=== PATIENT | male | born 1960 | race Caucasian/White ===

== ENCOUNTER 2017-04-24 09:23 | Inpatient (IN) | payer OTHER ==
[~2017-04-24] VITALS: Ht 180.3 cm; Wt 89.0 kg
[2017-04-24] VITALS (23 sets, daily range): BP systolic 107–153; BP diastolic 58–100; PULSE 56–83; RESP 10–22; Ht 180.3 cm; Wt 89.0 kg
[2017-04-24] MEDS ORDERED: CARV3.1260 PO (09:58)
[2017-04-24] MEDS ORDERED: LISI10TA2 PO (09:58)
[2017-04-24] MEDS ORDERED: ASPI-664 PO (09:59)
[2017-04-24] MEDS ORDERED: AMLO5TAB4 PO (09:59)
--- NOTE | 2017-04-24 10:44 | RADRPT ---
PROCEDURE: XR Chest. CLINICAL INDICATION: Preoperative. TECHNIQUE: Single frontal view. COMPARISON: None. FINDINGS: The lungs are clear. The heart size is normal. There is no pleural effusion or pneumothorax. There is an old healed fracture of the mid right clavicle. IMPRESSION: 1. Old healed fracture of the midshaft of the right clavicle. 2. Otherwise normal chest x-ray. RPTAT: QQ .Titi Gonzalez MD, MD Date Time Electronically viewed and signed by .Titi Gonzalez MD, on 04/24/2017 10:43 .R/
[2017-04-24] MEDS ORDERED: TRANEXAMIC ACID 1,000 MG in SOD CHLORIDE 0.9% 100 ML IV ONE ×4 (12:30)
[2017-04-24] MEDS ORDERED: CEFAZOLIN 1 GM INJ ONE (13:22)
[2017-04-24] MEDS ORDERED: LIDOCAINE 2% (SDV) 5 ML INJ ONE (13:22)
[2017-04-24] MEDS ORDERED: PROPOFOL 20 ML ONE (13:22)
[2017-04-24] MEDS ORDERED: morphine SULFATE/PF (10 MG/10 ML) INJ ONE ×2 (13:22→14:25)
[2017-04-24] MEDS ORDERED: EPHEDrine SULFATE 50 MG/5 ML SYG IV PRN (13:30)
[2017-04-24] MEDS ORDERED: OXYCODONE/ACETAMINOPHEN (5/325) TAB PO PRN ×2 (13:30)
[2017-04-24] MEDS ORDERED: FENTAnyl 50 MCG/ML VIAL IV PRN ×3 (13:30)
[2017-04-24] MEDS ORDERED: hydrALAzine 20 MG INJ IV PRN (13:30)
[2017-04-24] MEDS ORDERED: DIPHENHYDRAMINE 50 MG INJ IV PRN (13:30)
[2017-04-24] MEDS ORDERED: ONDANSETRON 4 MG INJ IV PRN (13:30)
[2017-04-24] MEDS ORDERED: HYDROmorphONE (0.2 MG/ML) 10ML SYG IV PRN ×3 (13:30)
[2017-04-24] MEDS ORDERED: MIDAZOLAM 1 MG/ML 2 ML INJ IV PRN (13:30)
[2017-04-24] MEDS ORDERED: METOCLOPRAMIDE 10 MG INJ IV PRN (13:30)
[2017-04-24] MEDS ORDERED: MEPERIDINE 25 MG INJ IV PRN (13:30)
[2017-04-24] MEDS ORDERED: LABETALOL HCL 20MG INJ IV PRN (13:30)
--- NOTE | 2017-04-24 13:30 | HPN ---
Date/Time of Note Date/Time of Note DATE: 04/24/17 TIME: 13:29 Interval H&P Admission Note Pt. seen H&P reviewed: No system changes IRENA HUGHES PA-C Apr 24, 2017 13:30
[2017-04-24] MEDS ORDERED: ROPIVACAINE 0.5 % 30 ML VIAL ONE (14:01)
[2017-04-24] MEDS ORDERED: EPHEDrine SULFATE 50 MG/5 ML SYG ONE (14:01)
[2017-04-24] MEDS ORDERED: BACITRACIN 50000 UNITS INJ IRR ONE (14:11)
[2017-04-24] MEDS ORDERED: BUPIVACAINE 0.25% (MPF) 30 ML INJ ONE (14:25)
[2017-04-24] MEDS ORDERED: KETOROLAC 30 MG INJ ONE (14:26)
[2017-04-24] MEDS ORDERED: NALOXONE (0.4 MG/ML) INJ IV PRN (15:00)
[2017-04-24] MEDS ORDERED: VANCOMYCIN 1 GM INJ ONE (15:36)
[2017-04-24] MEDS ORDERED: morphine SULFATE/PF (10 MG/10 ML) INJ INJ ONE (15:38)
[2017-04-24] MEDS ORDERED: KETOROLAC 30 MG INJ INJ ONE (15:38)
[2017-04-24] MEDS ORDERED: BUPIVACAINE 0.25% (MPF) 30 ML INJ INJ ONE (15:38)
[2017-04-24] MEDS ORDERED: VANCOMYCIN 500MG INJ IMPLANTED ONE (15:40)
--- NOTE | 2017-04-24 16:19 | SIPON ---
Date/Time of Note Date/Time of Note DATE: 04/24/17 TIME: 16:17 Operative Report Preoperative Diagnosis Left Knee Osteoarthritis Postoperative Diagnosis Same Operation/Procedure Performed Left Total Knee Arthroplasty Surgeon MD Soumya technology assistant KIM Riley Anesthesia: general Estimated blood loss: 250 - 300 ml's Transfusion Required none Specimen Resected Bone Grafts/Implants Shah Nephew Size 6N femur, Size 4 Tibia, 35mm patella, 10mm PS poly Complications none JAY TAMEZ MD Apr 24, 2017 16:19
[2017-04-24] MEDS ORDERED: traMADol 50 MG TAB PO PRN (16:30)
[2017-04-24] MEDS ORDERED: KETOROLAC 15 MG INJ IV PRN (16:30)
[2017-04-24] MEDS: CEFAZOLIN 1 GM/50 ML (PMX) 50 ML IVPB SCH (17:44)
--- NOTE | 2017-04-24 17:44 | RADRPT ---
PROCEDURE: XR Left Knee. CLINICAL INDICATION: Left knee pain. Postop. TECHNIQUE: Two views. Frontal and lateral. COMPARISON: No prior studies are available for comparison. FINDINGS: There is no fracture or dislocation. Gas is present in the soft tissues from the recent surgery. There is a total left knee arthroplasty which appears satisfactory. There is no lytic or blastic lesion. IMPRESSION: 1. Satisfactory postoperative appearance of the left knee. RPTAT: QQ .Titi Gonzalez MD, MD Date Time Electronically viewed and signed by .Titi Gonzalez MD, MD on 04/24/2017 17:43 .R/
[2017-04-24] MEDS: ONDANSETRON 4 MG INJ IV SCH ×2 (19:13→22:30)
[2017-04-24] MEDS: LISINOPRIL 10 MG TAB PO SCH (20:00)
[2017-04-24] MEDS ORDERED: ASPIRIN (EC) 81 MG TAB PO SCH (20:00)
[2017-04-24] MEDS: AMLODIPINE 5 MG TAB PO SCH (20:00)
[2017-04-25] MEDS: CEFAZOLIN 1 GM/50 ML (PMX) 50 ML IVPB SCH ×2 (00:47→08:19)
[2017-04-25] MEDS: ONDANSETRON 4 MG INJ IV SCH ×2 (04:12→10:49)
[2017-04-25 05:12] LABS: BASOPHILS % 0.3 % (0.0-2.0); EOSINOPHILS # 0.2 10^3/ul (0.0-0.5); EOSINOPHILS % 2.3 % (0.0-7.0); HEMATOCRIT 38.1 % (42.0-52.0); LYMPHOCYTES # 1.7 10^3/ul (0.8-2.9); LYMPHOCYTES % 22.3 % (15.0-51.0); MEAN CORPUSCULAR HEMOGLOBIN 31.5 pg (29.0-33.0); MEAN CORPUSCULAR HGB CONC 34.1 g/dl (32.0-37.0); MEAN CORPUSCULAR VOLUME 92.3 fl (82.0-101.0); MEAN PLATELET VOLUME 9.1 fl (7.4-10.4); MONOCYTE # 0.8 10^3/ul (0.3-0.9); MONOCYTES % 10.2 % (0.0-11.0); NEUTROPHILS % 64.6 % (39.0-77.0); PLATELET COUNT 164 10^3/UL (140-415); RED BLOOD COUNT 4.13 10^6/ul (4.70-6.10); RED CELL DISTRIBUTION WIDTH 12.9 % (11.5-14.5); WHITE BLOOD COUNT 7.8 10^3/ul (4.8-10.8)
[2017-04-25 05:33] LABS: CALCIUM 8.4 mg/dl (8.4-10.2); CREATININE 0.95 mg/dl (0.61-1.24); POTASSIUM 4.1 mmol/L (3.5-5.1)
[2017-04-25] MEDS ORDERED: KETOROLAC 15 MG INJ INJ PRN (06:00)
--- NOTE | 2017-04-25 06:20 | PN ---
Date/Time of Note Date/Time of Note DATE: 04/25/17 TIME: 06:19 Assessment/Plan Lines/Catheters IV Catheter Type (from Nrsg): Peripheral IV Kaufman in Place (from Nrsg): Yes Assessment/Plan Assessment/Plan s/p L TKA POD 1 WBAT. PT daily. Multimodal pain management. ASA po BID. SCD. Finish IV Ancef. D/ c home when passes PT Subjective 24 Hr Interval Summary Pain controlled. Patient worked with PT. Denies CP/SOB. Tolerating PO. Exam/Review of Systems Vital Signs Vitals Vital Signs Date Time Temp Pulse Resp B/P Pulse Ox O2 Delivery O2 Flow Rate FiO2 04/24/17 23:45 67 16 114/58 96 Room Air 04/24/17 20:00 97.8 Intake and Output 04/24/17 04/24/17 04/25/17 15:00 23:00 07:00 Intake Total 2450 ml 850 ml Output Total 400 ml 600 ml Balance 2050 ml 250 ml Exam Free Text/Dictation LLE: Dressing C/D/I. SCDs on. Calf soft/Neg Homans. 5/5 Quads/Gs/TA. Palpable pulses. Results Result Diagram: 04/25/17 0428 04/25/17 0428 JAY TAMEZ MD Apr 25, 2017 06:20
[2017-04-25 07:26] VITALS: BP 114/70; RESP 18
--- NOTE | 2017-04-25 07:39 | PDOCDIS ---
Discharge Instructions DIAGNOSIS Discharge Diagnosis Status post left total knee arthroplasty CONDITION Patient Condition: Stable HOME CARE INSTRUCTIONS: Diet Instructions: RegularSpecial Diet: CLEAR LIQUIDS ACTIVITY: Activity Restrictions: Slowly Increase Activity Rest between Activity Avoid heavy lifting No Sexual Activity Do not Drive (No driving for expected 6 weeks status post surgery.) Do not operate Machinery Do not operate Power Tool Avoid Heavy Housework Keep Limb Elevated Weight Bearing (As tolerated using front wheeled walker.) Bathing Restrictions: Shower (Using Tegaderm with pad. Apply prior to shower. After shower you may remove once area has been dry. Repeat the steps each day until desirae are removed around 10 days postoperatively.) FOLLOW UP/APPOINTMENTS Follow-up Plan Follow-up in outpatient office at exam date provided at preoperative visit. IRENA HUGHES PA-C Apr 25, 2017 07:39
--- NOTE | 2017-04-25 07:42 | OPR ---
DATE OF OPERATION: 04/25/2017 PREOPERATIVE DIAGNOSIS: Left knee osteoarthritis. POSTOPERATIVE DIAGNOSIS: Left knee osteoarthritis. OPERATION PERFORMED.: 1. Left total knee arthroplasty. CPT code 07178. 2. Computer-assisted surgical navigational procedure for total knee. CPT code 61805. SURGEON: Satnam Dooley. CORRECTIONAL CASEWORK SPECIALIST: Ryley Pope PA-C. ANESTHESIOLOGIST: Dr. Polanco. ANESTHESIA: Spinal with adductor. block. ESTIMATED BLOOD LOSS: 300 mL. COMPLICATIONS: None. TOURNIQUET TIME: 62 minutes at 250 mmHg. SPECIMEN: Resected bone. DISPOSITION: To PACU stable condition. IMPLANT USED: A Shah and Nephew, size 6 narrow femur, size 4 tibia, 35 mm all symmetric patella and 9 mm posterior stabilized polyethylene. INDICATIONS: This is a 56-year-old male with end-stage osteoarthritis of the left knee who failed no operative management. Risks, benefits, alternatives, and surgical intervention were discussed with the patient. Informed consent was obtained. The risks of surgery include, but are not limited to, infection, deep venous thrombosis, pulmonary embolism, damage to neurovascular structures, numbness, wound healing problems, loosening of prosthesis, wear of prosthesis, need for revision surgery, need for blood transfusion, heart attack, stroke, risks associated with anesthesia and even . OPERATIVE PROCEDURE: Patient was met in the preoperative suite. The correct operative site was confirmed and marked. He was then brought into the operating room. After induction of spinal anesthesia, he was placed in the supine position on the operating table. A tourniquet was applied to the left upper thigh and the left lower extremity was prepped and draped in the usual sterile fashion. Before starting, a time-out was taken to identify the correct operative site and confirmed that preoperative antibiotics consisting of 1 g of IV Ancef along with 1 g of tranexamic acid were administered. At this point, the left leg was elevated and exsanguinated. The tourniquet was insufflated for the above-noted time. A Midline incision was made. Median parapatellar arthrotomy was then performed. The lateral patellar retinacular ligaments were released and the patella was retracted laterally. The sleeve of tissue was released from the proximal medial tibia. The cruciate ligaments and the menisci were then excised along with the suprapatellar fat pad. At this point, an intramedullary hole was drilled into the femur and the femoral chris was attached to the anterior cutting block set at 5 degrees of valgus. The block was pinned in position and distal femoral cut was then made, taking 9.5 mm of distal femur. All osteophytes were removed. The femur was sized to a size 6. The size 6, 4 in 1 cutting block was pinned and the posterior condylar cuts followed by the anterior posterior chamber cuts were then completed. At this point, the tibia was then subluxed anteriorly. Using the navigation ortho line the slope was set at 4 degrees with 0 degrees of varus and valgus. 2 mm was resected off the medial tibial plateau and 8 mm off the lateral tibial plateau. At this point. If the gap content checker was used and noted to have equal extension and flexion gap. The tibia was sized to a size 4. The tibial tray was then pinned and the keel was punched. Next, femoral component was placed and the femoral box cut was then completed. At this point, the patella was then was sized to 24 mm and 10 mm was resected. The patella by and along with the trial tibial and femoral components with a 9 mm polyethylene insert was placed. The knee was noted to have full extension with greater than 120 degrees of flexion. The knee was stable to varus, valgus stress and had excellent patellar tracking. The trial components were removed. All bony surfaces were pulsed, lavaged and dried. The appropriate size components were brought into the field and cemented with the removal of excess cement. The knee was held in extension until the cement had cured. At this point, the tourniquet was deflated. The tranexamic acid and antibiotics were redosed. Once the cement had cured, the trial polyethylene was removed and the appropriate size 9 mm posterior stabilized polyethylene was placed. Hemostasis was obtained. The arthrotomy was closed using number 1 Vicryl interrupted [id number] fashion followed by closure of the subcutaneous tissue 2-0 Vicryl, and the skin with 3-0 Monocryl in subcuticular fashion with Steri-Strips. Sterile dressing was applied followed by a cold pack and an Dariusz wrap. The patient was awakened, taken to the postoperative care unit in stable condition. POSTOPERATIVE CARE: Patient will be weightbearing as tolerated. He will work with physical therapy. He will receive 2 additional doses of IV Ancef. He will receive SCDs along with aspirin 325 mg p.o. b.i.d. for 6 weeks. Upon discharge, he will follow up in my office within 2 weeks postoperatively. Dictated By: Satnam Dooley MD /leonila/wing /Document#: [id number]
[2017-04-25] MEDS ORDERED: HYDR-902 PO (07:44)
[2017-04-25] MEDS ORDERED: ASPI325T32 PO (07:44)
[2017-04-25] MEDS: HYDROCODONE/APAP (5/325) TAB PO PRN ×2 (08:17→16:14)
[2017-04-25] MEDS: LISINOPRIL 10 MG TAB PO SCH (08:19)
[2017-04-25] MEDS: AMLODIPINE 5 MG TAB PO SCH (08:19)
[2017-04-25] MEDS ORDERED: ASPIRIN (EC) 325 MG TAB PO SCH (09:00)
[2017-04-25] MEDS ORDERED: ASPI325T4 PO ×2 (12:24→12:28)
[2017-04-26] MEDS ORDERED: PANTOPRAZOLE (EC) 40 MG TAB PO SCH (06:00)
[2017-04-26] MEDS ORDERED: INFLUENZA VIRUS VACCINE 0.5 ML (DISPENSING) IM* ONE (09:00)
--- NOTE | 2017-04-26 09:32 | DS ---
Date/Time of Note Date/Time of Note DATE: 04/26/17 TIME: 09:28 Discharge Summary Admission/Discharge Info Admit Date/Time Apr 24, 2017 at 09:23 Discharge Date/Time Apr 25, 2017 at 19:50 Discharge Diagnosis Status post left total knee arthroplasty Patient Condition: Stable Hospital Course On the day of admission, the patient underwent Left total knee arthroplasty Intraoperative complications: None Postoperative complications: None The patient was given prophylactic antibiotics and anticoagulants. On the day of surgery and first postoperative day patient was started on gait training and was taught usual restrictions following Knee replacement. On the day of discharge, the wound was clean and healing well; there was no sign of infection. Discharge Temperature: 97.9 Discharge White Blood Cell Count: 7.8 Discharge Hemoglobin: 13 The patient was discharged home with home health. Arrangements were made for visiting nurses and home health/physical therapy. Tegaderm with pad also provided for patient. Instructions given on how to use to keep wound dry while showering. Patient may discontinue use of Tegaderm with pad after desirae have been removed around 10 days postoperatively. The patient will be seen in office at scheduled postoperative evaluation date given on their preoperative exam. Should patient complain of any problems prior to scheduled postoperative evaluation date, they may call into outpatient clinic to determine if they need to be scheduled at sooner appointment to be seen immediately if needed. Discharge medications: As per medication reconciliation form Diet: Same as preadmission diet. This is Irena Jurado PA-C dictating discharge summary for Dr. Kyle Arita. Home Meds Reported Medications Aspirin* (Aspirin*) 325 Mg Tablet, 325 MG PO BID, TAB 04/25/17 Aspirin (Low Dose Aspirin) 81 Mg Tablet., 81 MG PO DAILY, #30 TAB 04/24/17 Amlodipine Besylate* (Norvasc*) 5 Mg Tablet, 5 MG PO DAILY, TAB 04/24/17 Carvedilol* (Carvedilol*) 3.125 Mg Tablet, 3.125 MG PO BID, #60 TAB 04/24/17 Lisinopril* (Lisinopril*) 10 Mg Tablet, 10 MG PO DAILY, #30 TAB 04/24/17 Discontinued Reported Medications Aspirin* (Aspirin*) 325 Mg Tablet, 325 MG PO BID for 42 Days, TAB 04/25/17 Follow-up Plan Follow-up in outpatient office at exam date provided at preoperative visit. Primary Care Provider Not On Staff Doctor IRENA HUGHES PA-C Apr 26, 2017 09:32
--- NOTE | 2017-04-27 09:14 | RADRPT ---
Vent Rate: 59 bpm RR Interval: 0 msec CO Interval: 184 msec QRS Duration: 166 msec QT Interval: 488 msec QTC Interval: 483 msec P-R-T Glynn: 48 - 28 - 0 degrees Sinus bradycardia Left bundle branch block Abnormal ECG Electronically Signed By: Shailesh Rivas [id number]
== END 2017-04-25 19:50 | disposition home health service (06) | DRG 470 ==
LOC: REC 09:23 → MS1 19:55
PROVIDERS: ADMIT Orthopaedic Surgery Adult Reconstructive Orthopaedic Surgery; ATTEND Orthopaedic Surgery Adult Reconstructive Orthopaedic Surgery
PROC: 8E0YXBZ Computer Assisted Procedure of Lower Extremity (ICD-10-PCS; 2017-04-24)
PROC: 0SRD0J9 Replacement of Left Knee Joint with Synthetic Substitute, Cemented, Open Approach (ICD-10-PCS; principal; 2017-04-24 12:00)
DX: M17.12 Unilateral primary osteoarthritis, left knee (principal); I10 Essential (primary) hypertension
CPT/HCPCS: 71010; 73560; 80048; 85025; 87086; 88304; 88311; 93005; 97162; J0690; J1885; J2274; J2405; J2795; J3370